=== PATIENT | female | born 1970 | race Caucasian/White ===

== ENCOUNTER 2016-10-29 05:31 | Emergency (ER) | payer BC ==
[2016-10-29 05:49] VITALS: BMI 21.1
[2016-10-29] MEDS ORDERED: SODIUM CHLORIDE 0.9% 10 ML FLUSH FLUSH PRN (05:54)
[2016-10-29] MEDS ORDERED: NS 1,000 ML IV ONE (05:54)
--- NOTE | 2016-10-29 05:54 | EDPRACDOC ---
- General Information Information Source: Patient Mode Of Arrival: Car - History of Present Illness Onset: tonight HPI: PASSED OUT. DX WITH BREAST CA 1B IN MARCH 2016. MASTECTOMY. HERE AFTER PASSING OUT. SHE IS FOLLOWED AT [facility] AND IS ESTROGEN RECEPTOR POSITIVE AND TAKES TOMOXIFEN. NO PREVIOUS BODY SCAN OR CT'S TO CHECK FOR METS. SHE PASSED OUT IN THE BATHROOM. VISION WAS BLURRY AND LOST CONSCIOUSNESS. NO SANTIAGO OR CP. STATES HOLE IN BATHROOM WALL BUT DOES NOT RECALL HITTING HER HEAD. LOC Duration: Minutes Presyncopal phase: Reports: None Syncopal phase: Reports: With standing. Denies: With exertion, Incontinence, At Rest, Seizure activity Postsyncopal phase: Reports: Rapid recovery Prehospital care: Reports: None Relevant History of: Reports: None Improves/Worsens with: improves with: Nothing Associated Signs/Symptoms: Reports: None <Kwabena Dudley - Last Filed: 10/29/16 06:14> <Sierra Spears - Last Filed: 10/29/16 09:32> - General Information Chief Complaint: Generalized Weakness Stated Complaint: PAST OUT Time Seen by Provider: 10/29/16 05:51 Home Medications: Home Medications Acetaminophen [Tylenol] 650 mg PO Q4-6H PRN 10/29/16 Cetirizine HCl 10 mg PO DAILY 10/29/16 Diazepam [Valium] 5 mg PO BID 10/29/16 Diclofenac Sodium 75 mg PO BID 10/29/16 Fluconazole [Diflucan] 150 mg PO ONCE #1 tab 10/29/16 Lactobacillus Combo No.11 [Probiotic] 1 each PO DAILY #30 cap.sprink 10/29/16 Sulfamethoxazole/Trimethoprim [Bactrim Ds Tablet] 1 tab PO BID #14 tab 10/29/16 Tamoxifen [Nolvadex] 10 mg PO DAILY 10/29/16 Allergies/Adverse Reactions: Allergies Allergy/AdvReac Type Severity Reaction Status Date / Time No Known Allergies Allergy Verified 10/29/16 05:50 ED Past Medical History - History Reviewed Yes Nurses notes reviewed and agree except as marked - Patient Medical History Psychological History: Denies: Depression Systemic History: Reports: Cancer (right breast cancer) Surgical History: Reports: Appendectomy - Social Medical History Smoking Status: Never smoker <Kwabena Dudley - Last Filed: 10/29/16 06:14> EDM Review of Systems - Review of Systems ROS Negative Except as Marked: Yes All systems reviewed and were negative except as marked <Kwabena Dudley - Last Filed: 10/29/16 06:14> - Physical Exam Constitutional: Alert (Awake), No apparent distress Oriented to: Time, Person, Place Last recorded Vital Signs: Last Vital Signs Temp 98.3 F 10/29/16 05:35 Pulse 97 10/29/16 05:35 Resp 20 10/29/16 05:35 BP 117/71 10/29/16 05:35 Pulse Ox 97 10/29/16 05:35 Oxygen Pulse Oxygen Saturation 97 O2 Device Room Air Oxygen Flow Rate Fraction of Inspired Oxygen ( FIO2) - HEENT Head: Normal ( normocephalic) Eye Exam: Normal (PERRL, EOMI, Sclera white) Oropharynx: Normal (Pharynx:Moist without exudate,Gums-no swelling) ENT EAC: Normal TMJ: Normal Nose: No Symptoms Reported (septum midline) Neck: Normal (FROM, trachea at midline) - Respiratory/Cardiovascular Respiratory: Normal - CTA (BBS clear to auscultation without adventitious sounds ) Cardiovascular: Normal (RRR without murmur, gallop or rub) - GI Auscultation: Normal (NABS) Palpation: Normal (Soft,No rebound or guarding, non distended) Tenderness: Non tender Dunn's Sign: Negative - Musculoskeletal Back: Normal (Non-Tender) Extremities: Normal (Normal tone, Pulses 2+ No cyanosis or edema, FROM) - Integumentary Skin: Normal, Warm, Dry Lymphatics: Normal (no adenopathy) - Neurologic Memory Impaired: Normal Motor Function: Normal (Normal tone, Pulses 2+ No cyanosis or edema, FROM) Cranial Nerve: Normal (CN II-X11 intact sensation, strength 5/5) Cerebellar: Normal Mood Description: Normal Perception: Normal <Kwabena Dudley - Last Filed: 10/29/16 06:14> - Physical Exam Last recorded Vital Signs: Last Vital Signs Temp 98.3 F 10/29/16 05:35 Pulse 98 10/29/16 07:43 Resp 20 10/29/16 05:35 BP 121/80 10/29/16 07:43 Pulse Ox 98 10/29/16 07:47 Oxygen Pulse Oxygen Saturation 98 O2 Device Room Air Oxygen Flow Rate Fraction of Inspired Oxygen ( FIO2) <Sierra Spears - Last Filed: 10/29/16 09:32> - Re-evaluation Re-evaluation 1 Re-evaluation Time: 09:14 (IMPROVED) - Results 10/29/16 06:25 10/29/16 06:25 WBC 14.4 xk/uL (3.8-10.8) H 10/29/16 06:25 RBC 4.20 xM/uL (4.20-5.40) 10/29/16 06:25 Hgb 12.5 g/dL (12.0-16.0) 10/29/16 06:25 Hct 37.5 % (36-47) 10/29/16 06:25 MCV 89 fL (81-99) 10/29/16 06:25 MCH 29.6 pg (27-32) 10/29/16 06:25 MCHC 33.2 g/dl (33-36) 10/29/16 06:25 RDW 13.4 % (11.5-14.5) 10/29/16 06:25 Plt Count 181 xk/uL (130-400) 10/29/16 06:25 MPV 10.4 fL (7.4-10.4) 10/29/16 06:25 Neut % (Auto) 85.2 % (45-76) H 10/29/16 06:25 Lymph % (Auto) 8.3 % (17-44) L 10/29/16 06:25 [place] % (Auto) 5.2 % (3-10) 10/29/16 06:25 Eos % (Auto) 0.8 % (0-5) 10/29/16 06:25 Baso % (Auto) 0.5 % (0-2) 10/29/16 06:25 Absolute Neuts (auto) 12.24 xk/uL (1.7-8.2) H 10/29/16 06:25 Absolute Lymphs (auto) 1.15 xk/uL (0.65-4.75) 10/29/16 06:25 PT 11.1 SEC (9.2-11.2) 10/29/16 06:25 INR 1.1 10/29/16 06:25 APTT 22.9 SEC (22-35) 10/29/16 06:25 Sodium 141 mEq/L (137-146) 10/29/16 06:25 Potassium 3.7 mEq/L (3.5-5.1) 10/29/16 06:25 Chloride 105 mEq/L (98-107) 10/29/16 06:25 Carbon Dioxide 27 mMOL/L (22-33) 10/29/16 06:25 Anion Gap 13 mEq/L (8-16) 10/29/16 06:25 BUN 14 MG/DL (7-17) 10/29/16 06:25 Creatinine 0.70 MG/DL (0.52-1.04) 10/29/16 06:25 Estimated GFR (MDRD) > 60 mL/min (>=60) 10/29/16 06:25 Glucose 104 MG/DL (70-99) H 10/29/16 06:25 Calculated Osmolality 272 MOs/Kg (270-290) 10/29/16 06:25 Calcium 9.0 MG/DL (8.4-10.2) 10/29/16 06:25 Total Bilirubin 0.4 MG/DL (0.2-1.3) 10/29/16 06:25 AST 24 IU/L (14-36) 10/29/16 06:25 ALT 21 IU/L (9-52) 10/29/16 06:25 Alkaline Phosphatase 51 IU/L (38-126) 10/29/16 06:25 Troponin I < 0.01 ng/mL (<.04) 10/29/16 06:25 Cfn-P-Ntihzdbgdof Pept 56 pg/mL (0-450) 10/29/16 06:25 Total Protein 7.1 G/DL (6.3-8.2) 10/29/16 06:25 Albumin 4.1 G/DL (3.5-5.0) 10/29/16 06:25 Lab Results 10/29/16 10/29/16 10/29/16 06:25 06:25 06:25 WBC 14.4 H RBC 4.20 Hgb 12.5 Hct 37.5 MCV 89 MCH 29.6 MCHC 33.2 RDW 13.4 Plt Count 181 MPV 10.4 Neut % (Auto) 85.2 H Lymph % (Auto) 8.3 L [place] % (Auto) 5.2 Eos % (Auto) 0.8 Baso % (Auto) 0.5 Absolute Neuts (auto) 12.24 H Absolute Lymphs (auto) 1.15 PT 11.1 INR 1.1 APTT 22.9 Sodium 141 Potassium 3.7 Chloride 105 Carbon Dioxide 27 Anion Gap 13 BUN 14 Creatinine 0.70 Estimated GFR (MDRD) > 60 Glucose 104 H Calculated Osmolality 272 Calcium 9.0 Total Bilirubin 0.4 AST 24 ALT 21 Alkaline Phosphatase 51 Troponin I < 0.01 Hwk-U-Rrwytvvijsh Pept 56 Total Protein 7.1 Albumin 4.1 - Diagnostic Imaging Chest Image interpreted by: Radiologist Normal chest x-ray Other Image interpreted by: Radiologist ct chest: Negative. No evidence of pulmonary1 embolism or other active disease within the thorax. <Sierra Spears - Last Filed: 10/29/16 09:32> - Departure Yes I personally saw and evaluated the patient. <Kwabena Dudley - Last Filed: 10/29/16 06:14> Decision Time to Discharge: 09:14 - Departure Disposition: Home Education/Counseling Given To: Patient Education/Counseling Given Regarding: Diagnosis, Treatment, Follow Up <Sierra Spears - Last Filed: 10/29/16 09:32> - Departure Condition: Good Final Diagnosis: SYNCOPE, UTI (urinary tract infection) Instructions: Urinary Tract Infection in Women (ED), Dysuria Referrals: Katy Rust MD [Primary Care Provider] - One Week Prescriptions: Fluconazole [Diflucan] 150 mg PO ONCE #1 tab Lactobacillus Combo No.11 [Probiotic] 1 each PO DAILY #30 cap.sprink Sulfamethoxazole/Trimethoprim [Bactrim Ds Tablet] 1 tab PO BID #14 tab
[2016-10-29 06:33] LABS: AUTOMATED BASOPHIL 0.5 % (0-2); AUTOMATED EOSINOPHIL 0.8 % (0-5); AUTOMATED LYMPH 8.3 % (17-44); AUTOMATED MONOCYTE 5.2 % (3-10); AUTOMATED NEUTROPHIL 85.2 % (45-76); MPV 10.4 fL (7.4-10.4)
[2016-10-29 06:46] LABS: BLOOD UREA NITROGEN 14 MG/DL (7-17); CALCULATED OSMOLALITY 272 MOs/Kg (270-290); CHLORIDE 105 mEq/L (98-107); GLUCOSE 104 MG/DL (70-99); SODIUM LEVEL 141 mEq/L (137-146); TOTAL PROTEIN 7.1 G/DL (6.3-8.2)
[2016-10-29 06:47] LABS: PARTIAL THROMB. TIME 22.9 SEC (22-35); PT-INR 1.1
--- NOTE | 2016-10-29 07:13 | DIRPT ---
CLINICAL DATA: Chest pain this morning. Syncopal episode. EXAM: PORTABLE CHEST 1 VIEW COMPARISON: None. FINDINGS: The heart size and mediastinal contours are within normal limits. Both lungs are clear. The visualized skeletal structures are unremarkable. IMPRESSION: Normal chest x-ray Electronically Signed By: Simon Blanca M.D. On: 10/29/2016 07:11
[2016-10-29] MEDS ORDERED: Pharmacy Review for Metformin - IV Contrast Given SCH (08:00)
[2016-10-29 08:22] LABS: LEUKOCYTES/URINE 2+ (NEGATIVE); NITRITE/URINE NEG (NEGATIVE); RBC/URINE 40-50 (0-5); URINE OCCULT BLOOD 3+ (NEG/TRACE); WBC/URINE TNTC (0-5)
--- NOTE | 2016-10-29 08:55 | DIRPT ---
CLINICAL DATA: Syncopal episode and blurred vision today. EXAM: CT ANGIOGRAPHY CHEST WITH CONTRAST TECHNIQUE: Multidetector CT imaging of the chest was performed using the standard protocol during bolus administration of intravenous contrast. Multiplanar CT image reconstructions and MIPs were obtained to evaluate the vascular anatomy. CONTRAST: 80 mL Isovue 370 COMPARISON: None. FINDINGS: Mediastinum/Lymph Nodes: No pulmonary emboli or thoracic aortic dissection identified. Normal heart size. No evidence pericardial effusion. No masses or pathologically enlarged lymph nodes identified. Previous right mastectomy with right breast implant noted. No axillary lymphadenopathy identified. Lungs/Pleura: No pulmonary mass, infiltrate, or effusion. Upper abdomen: No acute findings. Musculoskeletal: No chest wall mass or suspicious bone lesions identified. Review of the MIP images confirms the above findings. Syncopal episode and blurred vision today. IMPRESSION: Negative. No evidence of pulmonary1 embolism or other active disease within the thorax. Electronically Signed By: Freddy Dominguez M.D. On: 10/29/2016 08:53
--- NOTE | 2016-10-29 09:08 | DIRPT ---
CLINICAL DATA: 46-year-old female with syncope and blurred vision today. Initial encounter. Current history of breast cancer on TAMOXIFEN. EXAM: CT HEAD WITHOUT CONTRAST TECHNIQUE: Contiguous axial images were obtained from the base of the skull through the vertex without intravenous contrast. COMPARISON: None. FINDINGS: No acute osseous abnormality identified. Visualized paranasal sinuses and mastoids are clear. Visualized scalp soft tissues are within normal limits. Visualized orbit soft tissues are within normal limits. Cerebral volume is normal. No intracranial mass effect. No midline shift, ventriculomegaly, mass effect, evidence of mass lesion, intracranial hemorrhage or evidence of cortically based acute infarction. Gomez-white matter differentiation is within normal limits throughout the brain. No suspicious intracranial vascular hyperdensity. IMPRESSION: Normal noncontrast CT appearance of the brain. Early metastatic disease to the brain cannot be excluded in the absence of intravenous contrast, and brain MRI without and with contrast would be most sensitive as necessary. Electronically Signed By: Jose Bustillo M.D. On: 10/29/2016 09:06
[2016-10-29] MEDS ORDERED: TRIMETHOPRIM-SULFAMETHOXAZOLE TAB PO ONE (09:14)
[2016-10-29 09:25] VITALS: BP 98/69; PULSE 69; TEMP 98.5
== END 2016-10-29 09:24 | disposition home or self-care (01) ==
LOC: ED 05:31
DX: N39.0 Urinary tract infection, site not specified (principal); R55 Syncope and collapse; Z85.3 Personal history of malignant neoplasm of breast
CPT/HCPCS: 36415; 70450; 71010; 71275; 80053; 81001; 81025; 83880; 84484; 85025; 85610; 85730; 93005; 96360; 96361; 99284; A9698; J3490